=== PATIENT | male | born 1995 | race Two or more races ===

== ENCOUNTER 2024-12-25 13:58 | Emergency (ER) | payer OTHER ==
[~2024-12-25] VITALS: Ht 170.2 cm; Wt 64.4 kg
[2024-12-25] MEDS ORDERED: IBUP-1490 PO (15:54)
[2024-12-25 16:00] VITALS: BP 125/70; TEMP 98; O2SAT 99
== END 2024-12-25 16:58 | disposition home or self-care (01) ==
LOC: ER 14:15
DX: R51.9 Headache, unspecified (principal); R11.0 Nausea; V49.00XA Driver injured in collision with unspecified motor vehicles in nontraffic accident, initial encounter; Y93.89 Activity, other specified; Y92.415 Exit ramp or entrance ramp of street or highway as the place of occurrence of the external cause; Y99.9 Unspecified external cause status
CPT/HCPCS: 72050-TC; 73030-TC